=== PATIENT | female | born 1940 | race Caucasian/White ===

== ENCOUNTER → 2016-11-03 | Outpatient (CLI) | payer OTHER ==
[~2016-11-03] MED LIST: HYDR12.55 PO; HYDR25TA5 PO; LEVO50TA6 PO; METO100T7 PO; MULT50TA3 PO; PANT40TA PO; PRT/40 PO; SUCR1TAB PO; TPRSR/100 PO; TYLOTC500 PO
[2016-11-03 12:24] LABS: HEMATOCRIT 41.8 % (37-47); MEAN CELL VOLUME 89.7 fL (80-100); MEAN CORPUSCULAR HEMOGLOBIN 30.9 pg (25-34); MEAN CORPUSCULAR HGB CONC 34.4 g/dl (32-36); PLATELET COUNT 249 K/uL (130-400); RED BLOOD COUNT 4.66 M/uL (4.2-5.4); WHITE BLOOD COUNT 4.47 K/uL (4.8-10.8)
[2016-11-03 12:49] LABS: ALT/SGPT 24 U/L (12-78); BLOOD UREA NITROGEN 18 mg/dl (7-18); BUN/CREATININE RATIO 14.8 (10-20); CALCIUM 9.5 mg/dl (8.5-10.1); CARBON DIOXIDE 28 mmol/L (21-32); CHLORIDE 101 mmol/L (98-107); CHOLESTEROL 272 mg/dl (0-200); GLUCOSE 101 mg/dl (70-99); POTASSIUM 3.3 mmol/L (3.5-5.1); SODIUM 140 mmol/L (136-145)
[2016-11-03 12:54] LABS: ESTIMATED AVERAGE GLUCOSE 114 mg/dl; HA1C FLAG Normal (Normal)
[2016-11-03 12:59] LABS: ALKALINE PHOSPHATASE 83 U/L (45-117); AST/SGOT 22 U/L (15-37); CHOLESTEROL/HDL RATIO 5.3; HDL CHOLESTEROL 51 mg/dl; LDL CHOLESTEROL CALCULATED 174 mg/dl; TRIGLYCERIDES 237 mg/dl (0-150); VERY LOW DENSITY LIPOPROT CALC 47 mg/dl
== END | disposition home or self-care (01) ==
LOC: C.LABBFT 09:32
PROVIDERS: ATTEND Internal Medicine
DX: R73.01 Impaired fasting glucose (principal); I10 Essential (primary) hypertension; E78.5 Hyperlipidemia, unspecified; E03.9 Hypothyroidism, unspecified

== ENCOUNTER 2016-11-20 19:34 | Observation (INO) | payer OTHER ==
[~2016-11-20] VITALS: Ht 165.1 cm; Wt 72.4 kg
[~2016-11-20 19:34] MED LIST changes: -HYDR25TA5 PO; -PRT/40 PO; -TPRSR/100 PO
[2016-11-20] MEDS ORDERED: SODIUM CHLORIDE 0.9% 1000ML 1,000 ML IV ONE (20:03)
[2016-11-20] MEDS ORDERED: DIPHTHERIA/TETANUS/PERTUSSIS 0.5 ML SYR/VIAL IM. ONE (20:15)
[2016-11-20] MEDS ORDERED: XYLOCAINE 1%/SOD BICARB 20 ML VIAL INFIL STA (20:36)
--- NOTE | 2016-11-20 20:37 | DIAGNOSTIC IMAGING REPORT ---
CHEST ONE VIEW PORTABLE CLINICAL HISTORY: Sepsis dyspnea COMPARISON STUDY: No previous studies for comparison. FINDINGS: The bones soft tissues and hemidiaphragms are normal. The cardiomediastinal silhouette is normal. The lungs are clear. The pulmonary vasculature is normal. IMPRESSION: Negative chest. Electronically signed by: Eulalio Styles M.D. 11/20/2016 8:36 PM Dictated Date/Time: 11/20/2016 8:35 PM
--- NOTE | 2016-11-20 20:39 | EMERGENCY ROOM VISIT NOTE ---
ED Visit Note Patient was seen and evaluated by Dr. Pratt. I was asked to repair the wounds. Risks and benefits of performing primary wound closure versus no repair were discussed with the patient who verbalizes understanding. Verbal consent was obtained prior to performing the procedure. There were 3 repairable lacerations. The first is on the superior occipital region measuring 2cm in length, the second on the forehead measuring 2cm in length, and the third on the bridge of the nose measuring 1cm total in the shape of an "L". A total, of 3 cc of 1% buffered lidocaine was used to anesthetize the 3 laceration. Each wound was cleansed and prepped in the typical sterile fashion utilizing normal saline and Betadine. The wound was sterilely draped. Once proper anesthetization was established, the wound was further examined and demonstrated 3 linear, clean lacerations. The wound was copiously irrigated with normal saline and Betadine. The first wound was closed using 5 delvis, the second was closed using 5 simple, 6-0 nylon sutures with the wound edges being well approximated. The third one was closed using one simple interrupted 6-0 nylon suture. Patient tolerated the procedure well. No complications were met. Please refer to further documentation regarding her stay. Total repaired length: 5cm
--- NOTE | 2016-11-20 20:40 | DIAGNOSTIC IMAGING REPORT ---
PELVIS 1 OR 2 VIEW ROUTINE CLINICAL HISTORY: fall trauma COMPARISON: None. DISCUSSION: The bones and joint spaces appear intact. There is no evidence of fracture, dislocation or bony disease. There is no evidence for soft tissue swelling. IMPRESSION: Negative study. Electronically signed by: Eulalio Styles M.D. 11/20/2016 8:38 PM Dictated Date/Time: 11/20/2016 8:36 PM
[2016-11-20 20:56] LABS: BASO % 0.4 %; BASO ABS # 0.03 K/uL (0-0.2); COMPLETE YES; HEMATOCRIT 39.8 % (37-47); IG% 0.3 %; LYMPH ABS # 0.97 K/uL (1.2-3.4); MEAN CELL VOLUME 89.4 fL (80-100); MEAN CORPUSCULAR HEMOGLOBIN 31.7 pg (25-34); MEAN CORPUSCULAR HGB CONC 35.4 g/dl (32-36); MEAN PLATELET VOLUME 9.5 fL (7.4-10.4); NEUT % 66.3 %; PLATELET COUNT 190 K/uL (130-400); RED BLOOD COUNT 4.45 M/uL (4.2-5.4); WHITE BLOOD COUNT 6.91 K/uL (4.8-10.8)
[2016-11-20] MEDS ORDERED: TPRSR/100 PO (21:02)
[2016-11-20] MEDS ORDERED: PRT/40 PO (21:02)
[2016-11-20] MEDS ORDERED: HYDR25TA5 PO (21:02)
--- NOTE | 2016-11-20 21:04 | DIAGNOSTIC IMAGING REPORT ---
HEAD CT NONCONTRAST CT DOSE: HISTORY: Trauma fall TECHNIQUE: Multiaxial CT images of the head were performed without the use of intravenous contrast. Comparison: None. Findings: Opacified sphenoid sinus. The calvarium and skull base are intact. The ventricles and sulci are within normal limits. There is no mass, hematoma, midline shift, or acute infarct. Impression: No acute intracranial abnormality. Electronically signed by: Eulalio Styles M.D. 11/20/2016 9:03 PM Dictated Date/Time: 11/20/2016 9:02 PM
[2016-11-20 21:06] LABS: INR 1.1 (0.9-1.1); PARTIAL THROMBOPLASTIN RATIO 1.2; PROTHROMBIN TIME (PATIENT) 12.1 SECONDS (9.0-12.0)
--- NOTE | 2016-11-20 21:06 | DIAGNOSTIC IMAGING REPORT ---
MAXILLOFACIAL CT CT DOSE: HISTORY: Trauma fall TECHNIQUE: Multiaxial CT images of the maxillofacial region were performed and reformatted in the coronal plane without the use of contrast. COMPARISON: None. FINDINGS: Fracture tip nasal bones. Mild soft tissue edema. Major sinuses are considered clear. There is opacification of the sphenoid sinus. Orbital margins are intact. The globes are symmetric. IMPRESSION: Nondisplaced fracture nasal bones. Soft tissue edema. No additional acute bony abnormality. Electronically signed by: Eulalio Styles M.D. 11/20/2016 9:05 PM Dictated Date/Time: 11/20/2016 9:03 PM
--- NOTE | 2016-11-20 21:08 | DIAGNOSTIC IMAGING REPORT ---
CERVICAL SPINE CT CT DOSE: 1071.76 mGy.cm HISTORY: Trauma fall TECHNIQUE: Multiaxial CT images of the cervical spine were performed and reformatted in the sagittal and coronal plane without the use of contrast. COMPARISON: None. FINDINGS: No fractures. No subluxation. Prevertebral soft tissues and the C1-C2 interval are intact. No pneumothorax. Considerable degenerative change throughout the entire cervical region IMPRESSION: Degenerative change. No acute bony abnormality. Electronically signed by: Eulalio Styles M.D. 11/20/2016 9:07 PM Dictated Date/Time: 11/20/2016 9:05 PM
[2016-11-20 21:15] LABS: ALT/SGPT 22 U/L (12-78); BLOOD UREA NITROGEN 15 mg/dl (7-18); BUN/CREATININE RATIO 11.8 (10-20); C-REACTIVE PROTEIN 2.01 mg/dl (0-0.29); CALCIUM 8.8 mg/dl (8.5-10.1); CARBON DIOXIDE 24 mmol/L (21-32); CHLORIDE 101 mmol/L (98-107); GLUCOSE 124 mg/dl (70-99); MAGNESIUM 1.9 mg/dl (1.8-2.4); POTASSIUM 3.7 mmol/L (3.5-5.1); SODIUM 136 mmol/L (136-145)
[2016-11-20 21:18] LABS: ALB/GLOB RATIO 0.9 (0.9-2); ALKALINE PHOSPHATASE 76 U/L (45-117); AST/SGOT 24 U/L (15-37); CKMB/CK RATIO 1.1 (0-3.0); PHOSPHORUS 2.8 mg/dl (2.5-4.9)
[2016-11-20 22:35] LABS: URINE APPEARANCE CLEAR (CLEAR); URINE BILIRUBIN NEG (NEG); URINE COLOR YELLOW; URINE EPITHELIAL CELL AUTO >30 /lpf (0-5); URINE NITRITE NEG (NEG); URINE PH 6.5 (4.5-7.5); URINE SPECIFIC GRAVITY 1.021 (1.000-1.030); UROBILINOGEN NEG (NEG); ZZUR CULT IF INDIC CLEAN CATCH NO
[2016-11-20 22:36] LABS: MANUAL MICROSCOPIC REQUIRED? NO; REVIEW REQ? NO
--- NOTE | 2016-11-20 23:30 | EMERGENCY ROOM VISIT NOTE ---
History Report prepared by Rakel: Tsering Parker Under the Supervision of: Dr. Elmer Pratt D.O. First contact with patient: 19:57 Chief Complaint: FALL Stated Complaint: FELL, CUTS AND BURISES ALL OVER History of Present Illness The patient is a 76 year old female who presents to the Emergency Room with complaints of a sudden fall that occurred 1.5 hours ago, around 1830. The patient fell and hit her head. She is unsure of if she experienced LOC. She states that she remembers falling and that she couldn't get up afterward. The patient was able to stand and ambulate with help after falling. The patient is experiencing right arm pain and bilateral upper extremity numbness. She denies head pain and neck pain. She states that she has chronic neck pain and it does not feel any worse than usual. The patient states that she has been experiencing a productive cough with green sputum along with intermittent rhinorrhea and a sore throat. She adds that her was sick with similar symptoms last week. The patient denies chest pain, shortness of breath, abdominal pain, and urinary symptoms. She states that her tetanus shot is not up to date. The patient is not on any blood thinners. Source of History: patient Onset: 1.5 hours ago, around 1829 Position: other (global) Quality: other (fall ) Associated Symptoms: + cough (productive with green sputum), + sorethroat, No neck pain Note: intermittent rhinorrhea, right arm pain, bilateral upper extremity numbness, no head pain Review of Systems See HPI for pertinent positives & negatives. A total of 10 systems reviewed and were otherwise negative. Past Medical & Surgical Medical Problems: (1) Anxiety (2) Arthritis (3) Benign hypertension (4) Bilateral tubal ligation (5) ESOPHAGEAL STRICTURE (6) Hysterectomy (7) Paresthesia of both hands (8) Phlebitis Family History Cancer Diabetes mellitus Gallbladder disease Heart disease Hypertension Social History Smoking Status: Never Smoker Alcohol Use: none Drug Use: none Marital Status: Housing Status: lives with family Occupation Status: retired Current/Historical Medications Scheduled Hydrochlorothiazide (Hydrochlorothiazide), 12.5 MG PO DAILY Levothyroxine Sodium (Levothyroxine Sodium), 50 MCG PO DAILY Metoprolol Succinate (Metoprolol Succinate ER), 100 MG PO DAILY Multiple Vitamins W/ Minerals (One Daily 50 Plus), 1 TAB PO DAILY Pantoprazole (Pantoprazole Sodium), 40 MG PO BID Allergies Coded Allergies: No Known Allergies (Verified , NKA, 11/20/16) Physical Exam Vital Signs Date Time Temp Pulse Resp B/P Pulse Ox O2 Delivery O2 Flow Rate FiO2 11/20/16 23:31 36.8 20 147/81 96 Room Air 11/20/16 22:17 79 20 158/90 96 Room Air 11/20/16 20:43 95 Room Air 11/20/16 20:07 83 11/20/16 19:35 38.0 119 20 134/69 100 Room Air Physical Exam GENERAL: Patient is awake, alert, and in no acute distress. Patient is somewhat anxious but comfortable. Patient does not appear to be in significant pain. HEAD: Horizontal laceration on forehead and parietal scalp. No active bleeding noted. EYES: The conjunctivae are clear. The pupils are round and reactive. EARS, NOSE, MOUTH AND THROAT: Ecchymosis and swelling over bridge of nose. Clotted blood noted in both nares. Small laceration over the bride of the nose. Mucous membranes are dry tongue is midline NECK: The neck is nontender and supple. RESPIRATORY: Normal respiratory effort is noted there are diminished breath sounds throughout with scattered rhonchi. No significant tachypnea or conversational dyspnea. CARDIOVASCULAR: Regular rate and rhythm noted there no murmurs rubs or gallops normal S1 normal S2 GASTROINTESTINAL: The abdomen is soft. Bowel sounds are present in all quadrants. Abdomen is nontender BACK: No midline tenderness or or step-off noted range of motion in flexion extension as well as rotation no signs of muscle spasm noted MUSCULOSKELETAL/EXTREMITIES: There is no evidence of gross deformity full range of motion is noted in the hips and shoulders SKIN: Trace pedal edema bilaterally. There is no obvious evidence of any rash. There are no petechiae, pallor or cyanosis noted. NEUROLOGIC: Patient is awake alert and oriented x3 patellar reflexes are 1+ bilaterally no drift. Patient complains of subjective numbness of both upper extremities from elbows to hands. GCS: 15. Medical Decision & Procedures ER Provider Diagnostic Interpretation: Radiology results as stated below per my review and radiologist interpretation: CHEST ONE VIEW PORTABLE IMPRESSION: Negative chest. Electronically signed by: Eulalio Styles M.D. 11/20/2016 8:36 PM Dictated Date/Time: 11/20/2016 8:35 PM PELVIS 1 OR 2 VIEW ROUTINE IMPRESSION: Negative study. Electronically signed by: Eulalio Styles M.D. 11/20/2016 8:38 PM Dictated Date/Time: 11/20/2016 8:[address] NONCONTRAST Impression: No acute intracranial abnormality. Electronically signed by: Eulalio Styles M.D. 11/20/2016 9:03 PM Dictated Date/Time: 11/20/2016 9:[address] IMPRESSION: Nondisplaced fracture nasal bones. Soft tissue edema. No additional acute bony abnormality. Electronically signed by: Eulalio Styles M.D. 11/20/2016 9:05 PM Dictated Date/Time: 11/20/2016 9:[address] IMPRESSION: Degenerative change. No acute bony abnormality. Electronically signed by: Eulalio Styles M.D. 11/20/2016 9:07 PM Dictated Date/Time: 11/20/2016 9:05 PM Laboratory Results 11/20/16 20:35 Red Blood Count 4.45, Mean Corpuscular Volume 89.4, Mean Corpuscular Hemoglobin 31.7, Mean Corpuscular Hemoglobin Concent 35.4, Mean Platelet Volume 9.5, Neutrophils (%) (Auto) 66.3, Lymphocytes (%) (Auto) 14.0, Monocytes (%) (Auto) 19.0, Eosinophils (%) (Auto) 0.0, Basophils (%) (Auto) 0.4, Neutrophils # (Auto ) 4.58, Lymphocytes # (Auto) 0.97, Monocytes # (Auto) 1.31, Eosinophils # (Auto ) 0.00, Basophils # (Auto) 0.03 Test 11/20/16 20:35 11/20/16 20:40 11/20/16 20:45 11/20/16 22:10 White Blood Count 6.91 K/uL (4.8-10.8) Red Blood Count 4.45 M/uL (4.2-5.4) Hemoglobin 14.1 g/dL (12.0-16.0) Hematocrit 39.8 % (37-47) Mean Corpuscular Volume 89.4 fL (80-100) Mean Corpuscular Hemoglobin 31.7 pg (25-34) Mean Corpuscular Hemoglobin Concent 35.4 g/dl (32-36) Platelet Count 190 K/uL (130-400) Mean Platelet Volume 9.5 fL (7.4-10.4) Neutrophils (%) (Auto) 66.3 % Lymphocytes (%) (Auto) 14.0 % Monocytes (%) (Auto) 19.0 % Eosinophils (%) (Auto) 0.0 % Basophils (%) (Auto) 0.4 % Neutrophils # (Auto) 4.58 K/uL (1.4-6.5) Lymphocytes # (Auto) 0.97 K/uL (1.2-3.4) Monocytes # (Auto) 1.31 K/uL (0.11-0.59) Eosinophils # (Auto) 0.00 K/uL (0-0.5) Basophils # (Auto) 0.03 K/uL (0-0.2) RDW Standard Deviation 46.7 fL (36.4-46.3) RDW Coefficient of Variation 14.2 % (11.5-14.5) Immature Granulocyte % (Auto) 0.3 % Immature Granulocyte # (Auto) 0.02 K/uL (0.00-0.02) Erythrocyte Sedimentation Rate 29 mm/hr (0-21) Prothrombin Time 12.1 SECONDS (9.0-12.0) Prothromb Time International Ratio 1.1 (0.9-1.1) Activated Partial Thromboplast Time 30.2 SECONDS (21.0-31.0) Partial Thromboplastin Ratio 1.2 Phosphorus Level 2.8 mg/dl (2.5-4.9) Total Bilirubin 0.7 mg/dl (0.2-1) Aspartate Amino Transf (AST/SGOT) 24 U/L (15-37) Alanine Aminotransferase (ALT/SGPT) 22 U/L (12-78) Alkaline Phosphatase 76 U/L (45-117) Total Creatine Kinase 236 U/L (26-192) Creatine Kinase MB 2.5 ng/ml (0.5-3.6) Creatine Kinase MB Ratio 1.1 (0-3.0) Troponin I < 0.015 ng/ml (0-0.045) C-Reactive Protein 2.01 mg/dl (0-0.29) Pro-B-Type Natriuretic Peptide 1264 pg/ml (0-900) Total Protein 8.0 gm/dl (6.4-8.2) Albumin 3.8 gm/dl (3.4-5.0) Globulin 4.2 gm/dl (2.5-4.0) Albumin/Globulin Ratio 0.9 (0.9-2) Lipase 119 U/L (73-393) Influenza Type A (RT-PCR) Neg for Influ A (NEG) Influenza Type A Antigen Neg for Influ A (NEG) Influenza Type B Antigen Neg for Influ B (NEG) Influenza Type B (RT-PCR) Neg for Influ B (NEG) Bedside Lactic Acid Venous 1.68 mmol/L (0.90-1.70) Urine Color YELLOW Urine Appearance CLEAR (CLEAR) Urine pH 6.5 (4.5-7.5) Urine Specific [place] 1.021 (1.000-1.030) Urine Protein 1+ (NEG) Urine Glucose (UA) NEG (NEG) Urine Ketones 1+ (NEG) Urine Occult Blood 1+ (NEG) Urine Nitrite NEG (NEG) Urine Bilirubin NEG (NEG) Urine Urobilinogen NEG (NEG) Urine Leukocyte Esterase NEG (NEG) Urine WBC (Auto) 1-5 /hpf (0-5) Urine RBC (Auto) 0-4 /hpf (0-4) Urine Hyaline Casts (Auto) 1-5 /lpf (0-5) Urine Epithelial Cells (Auto) >30 /lpf (0-5) Urine Bacteria (Auto) NEG (NEG) Laboratory results per my review. Medications Administered Medications (Trade) Dose Ordered Sig/Jean Route Start Time Stop Time Status Last Admin Dose Admin Sodium Chloride (Nss 1000ml) 1,000 ml @ 999 mls/hr Q1H1M ONCE IV 11/20/16 20:03 11/20/16 21:03 DC 11/20/16 20:03 999 MLS/HR Diphtheria/ Pertussis/Tetanus Vacc (Adacel Inj) 0.5 ml ONCE ONCE IM. 11/20/16 20:15 11/20/16 20:16 DC 11/20/16 21:19 0.5 ML Acetaminophen (Tylenol Tab) 650 mg Q4H PRN PO 11/20/16 23:45 12/20/16 23:44 11/21/16 14:36 650 MG ECG Indication: back/shoulder pain Rate (beats per minute): 86 Rhythm: sinus rhythm Findings: 1st degree AV block, no ectopy, other (no acute ST segment abnormalities) Comparison ECG Date: no prior available ED Course 1999: The patient was evaluated in room C1. A complete history and physical examination were performed. 2002: Ordered NSS 1,000 ml @ 999 mls/hr IV 2014: Ordered Adacel Inj 0.5 ml IM 2019: I discussed the patient's case with Eldon Louis PA-C. He is going to repair the patient's lacerations. 2155: Eldon Louis PA-C finished the laceration repair at this time. Refer to his note for further details about the procedure. 2235: I reassessed and updated the patient. 0: Upon reevaluation, the patient is resting comfortably. I discussed results and treatment plan with her. She verbalizes agreement and understanding. The patient will be evaluated for further management and care. 2326: I discussed the patient's case with Dr. Ramone SHAH. The patient will be evaluated for further management. Medical Decision Prior records/ancillary studies reviewed. Triage Nursing notes reviewed. The patient's history was concerning for traumatic injury Differential diagnosis: Etiologies such as fracture, dislocation, intra-abdominal, pneumothorax, intrathoracic , intracranial, neurologic, as well as other traumatic pathologies were entertained. The patient is a 76-year-old female who presented to the emergency department after a fall. It sounds that the patient may have had a syncopal episode but when she was found she had significant facial and head injuries. The patient had swelling over her nasal bridge. She also had a laceration to the scalp. The patient was reevaluated multiple times. She was treated with IV fluids. I discussed the patient's laboratory and radiographic studies with her. I also discussed his case with the on-call [facility] hospitalist group. They have agreed to evaluate the patient in the emergency department for further management and disposition. I discussed the patient's condition with her family members as well. The patient had continued symptoms of upper extremity tingling. She had no bony abnormalities noted on CAT scan however she may require an MRI to further evaluate for central cord syndrome or ligamentous injury. I discussed this with the accepting admitting doctor. Consults Time Called: [id number] Consulting Physician: Dr. Ramone SHAH Returned Call: [phone] I discussed the patient's case with Dr. Ramone SHAH. The patient will be evaluated for further management. Impression Primary Impression: Syncope Additional Impressions: Fever Facial contusion Nasal bone fracture Numbness of upper extremity Scalp laceration Congestive heart failure Scribe Attestation The scribe's documentation has been prepared under my direction and personally reviewed by me in its entirety. I confirm that the note above accurately reflects all work, treatment, procedures, and medical decision making performed by me. Departure Information Dispostion Being Evaluated By Hospitalist Referrals Eran Tavarez M.D. (PCP) Patient Instructions [facility] Problem Qualifiers Primary Impression: Syncope Syncope type: unspecified Qualified Codes: R55 - Syncope and collapse Additional Impressions: Fever Fever type: unspecified Qualified Codes: R50.9 - Fever, unspecified Facial contusion Encounter type: initial encounter Qualified Codes: S00.83XA - Contusion of other part of head, initial encounter Nasal bone fracture Encounter type: initial encounter Fracture type: closed Qualified Codes: S02.2XXA - Fracture of nasal bones, initial encounter for closed fracture Scalp laceration Encounter type: initial encounter Qualified Codes: S01.01XA - Laceration without foreign body of scalp, initial encounter Congestive heart failure Congestive heart failure type: unspecified congestive heart failure type Congestive heart failure chronicity: acute on chronic Qualified Codes: I50.9 - Heart failure, unspecified
[2016-11-20] MEDS ORDERED: MAGNESIUM HYDROXIDE SUSP 30 ML UDC PO PRN (23:45)
[2016-11-20] MEDS ORDERED: ONDANSETRON INJ 2 MG/ML 2 ML VIAL IV PRN (23:45)
[2016-11-20] MEDS ORDERED: POLYETHYLENE (MIRALAX) 17 GM PACK PO PRN (23:45)
[2016-11-20] MEDS ORDERED: ALUMINUM/MAGNESIUM/SIMETH (MAALOX MAX) 30 ML UDC PO PRN (23:45)
[2016-11-21] VITALS (9 sets, daily range): BP systolic 105–167; BP diastolic 62–84; PULSE 60–84; TEMP 36.4–37.1; O2SAT 93–97; Ht 165.1 cm; Wt 72.4 kg
[2016-11-21 00:23] LABS: INFLUENZA A PCR Neg for Influ A (NEG); INFLUENZA B PCR Neg for Influ B (NEG)
--- NOTE | 2016-11-21 00:50 | History and Physical ---
History & Physical Date & Time of Service: Nov 21, 2016 at 00:05 Chief Complaint: Fell, Cuts And Burises All Over Primary Care Physician: Eran Tavarez M.D. History of Present Illness Source: patient 74 y/o F w/Hx HTN, hypothyroid, esophageal strictures. Pt has had a flu-like illness for 1-2 days involving a productive cough, fever and weakness. She was in her kitchen when she became light headed and lost consciousness, falling at the base of her stairs and suffering head and face trauma in the process. She does not describe any acute neck pain however she states that she has a sensation of numbness and tingling in both hands which has been present since her syncopal episode. A skeletal survey was performed in the ER revealing a nasal fracture without additional acute findings. She is AAO x 3 on arrival to the ER. A low-grade fever was confirmed and initial labs are notable for mild ELIU. She denies CP, palpitations or SOB prior to losing consciousness. She required multiple stitches and a few delvis due to abrasions of her face/head. Her is currently ill with what may be a viral URI. Past Medical/Surgical History Medical Problems: (1) Anxiety Status: Chronic (2) Arthritis Status: Chronic (3) Benign hypertension Status: Chronic (4) Bilateral tubal ligation Status: Resolved (5) ESOPHAGEAL STRICTURE Status: Chronic (6) Hysterectomy Status: Resolved (7) Phlebitis Status: Chronic Family History Cancer Diabetes mellitus Gallbladder disease Heart disease Hypertension Social History Smoking Status: Never Smoker Drug Use: none Marital Status: Occupational Status: retired Multi-Drug Resistant Organisms History of MDRO: No Allergies Coded Allergies: No Known Allergies (Verified , NKA, 11/20/16) Home Medications Scheduled Hydrochlorothiazide (Hydrochlorothiazide), 12.5 MG PO DAILY Levothyroxine Sodium (Levothyroxine Sodium), 50 MCG PO DAILY Metoprolol Succinate (Metoprolol Succinate ER), 100 MG PO DAILY Multiple Vitamins W/ Minerals (One Daily 50 Plus), 1 TAB PO DAILY Pantoprazole (Pantoprazole Sodium), 40 MG PO BID Review of Systems Constitutional: + chills, + fever, No sweats Eyes: No eye pain, No worsening of vision ENT: + problem reported (nasal bridge pain following trauma), No hearing loss, No nasal symptoms, No unusual epistaxis Respiratory: + cough, + sputum, No dyspnea at rest, No dyspnea on exertion, No shortness of breath, No wheezing Cardiovascular: No PND, No chest pain, No orthopnea Abdomen: No nausea, No pain, No vomiting Musculoskeletal: + joint pain (chronic) Genitourinary - Female: No dysuria, No urinary frequency, No urinary urgency Neurologic: + numbness/tingling, + problem reported ([place]), No memory loss, No paralysis Psychiatric: No depression symptoms Endocrine: + fatigue Hematologic / Lymphatic: No abnormal bleeding/bruising Integumentary: No rash Physical Exam Vital Signs Date Time Temp Pulse Resp B/P Pulse Ox O2 Delivery O2 Flow Rate FiO2 11/20/16 23:31 36.8 20 147/81 96 Room Air 11/20/16 22:17 79 20 158/90 96 Room Air 11/20/16 20:43 95 Room Air 11/20/16 20:07 83 11/20/16 19:35 38.0 119 20 134/69 100 Room Air General Appearance: + pertinent finding Head: + evidence of trama (multiple abrasions/small lacerations - bruising n nasal bridge and under eyes) Eyes: normal inspection, PERRL, EOMI ENT: normal ENT inspection, hearing grossly normal, TMs normal, pharynx normal Neck: supple, no adenopathy, thyroid normal, no JVD Respiratory/Chest: chest non-tender, lungs clear, normal breath sounds, no respiratory distress, no accessory muscle use Cardiovascular: regular rate, rhythm, no edema, no gallop Abdomen/GI: normal bowel sounds, non tender, soft Back: normal inspection, no CVA tenderness, no muscle spasm, normal range of motion Extremities/Musculoskelatal: normal inspection, no calf tenderness, normal capillary refill, no pedal edema, normal range of motion Neurologic/Psych: material combiner II-XII nml as tested, no motor/sensory deficits, alert, normal mood/affect, normal reflexes, oriented x 3, + pertinent finding (It is noted that her numbness is largely subjective as light touch is intact bilaterally) Skin: + pertinent finding (abrasions as above as noted) Diagnostics Laboratory Results Results Past 24 Hours Test 11/20/16 20:35 11/20/16 20:40 11/20/16 20:45 11/20/16 22:10 Range/Units White Blood Count 6.91 4.8-10.8 K/uL Red Blood Count 4.45 4.2-5.4 M/uL Hemoglobin 14.1 12.0-16.0 g/dL Hematocrit 39.8 37-47 % Mean Corpuscular Volume 89.4 80-100 fL Mean Corpuscular Hemoglobin 31.7 25-34 pg Mean Corpuscular Hemoglobin Concent 35.4 32-36 g/dl Platelet Count 190 130-400 K/uL Mean Platelet Volume 9.5 7.4-10.4 fL Neutrophils (%) (Auto) 66.3 % Lymphocytes (%) (Auto) 14.0 % Monocytes (%) (Auto) 19.0 % Eosinophils (%) (Auto) 0.0 % Basophils (%) (Auto) 0.4 % Neutrophils # (Auto) 4.58 1.4-6.5 K/uL Lymphocytes # (Auto) 0.97 1.2-3.4 K/uL Monocytes # (Auto) 1.31 0.11-0.59 K/uL Eosinophils # (Auto) 0.00 0-0.5 K/uL Basophils # (Auto) 0.03 0-0.2 K/uL RDW Standard Deviation 46.7 36.4-46.3 fL RDW Coefficient of Variation 14.2 11.5-14.5 % Immature Granulocyte % (Auto) 0.3 % Immature Granulocyte # (Auto) 0.02 0.00-0.02 K/uL Erythrocyte Sedimentation Rate 29 0-21 mm/hr Prothrombin Time 12.1 9.0-12.0 SECONDS Prothromb Time International Ratio 1.1 0.9-1.1 Activated Partial Thromboplast Time 30.2 21.0-31.0 SECONDS Partial Thromboplastin Ratio 1.2 Sodium Level 136 136-145 mmol/L Potassium Level 3.7 3.5-5.1 mmol/L Chloride Level 101 98-107 mmol/L Carbon Dioxide Level 24 21-32 mmol/L Anion Gap 11.0 3-11 mmol/L Blood Urea Nitrogen 15 7-18 mg/dl Creatinine 1.30 0.60-1.20 mg/dl Est Creatinine Clear Calc Drug Dose 37.4 ml/min Estimated GFR () 46.5 Estimated GFR (Non- 40.1 BUN/Creatinine Ratio 11.8 10-20 Random Glucose 124 70-99 mg/dl Calcium Level 8.8 8.5-10.1 mg/dl Phosphorus Level 2.8 2.5-4.9 mg/dl Magnesium Level 1.9 1.8-2.4 mg/dl Total Bilirubin 0.7 0.2-1 mg/dl Aspartate Amino Transf (AST/SGOT) 24 15-37 U/L Alanine Aminotransferase (ALT/SGPT) 22 12-78 U/L Alkaline Phosphatase 76 45-117 U/L Total Creatine Kinase 236 26-192 U/L Creatine Kinase MB 2.5 0.5-3.6 ng/ml Creatine Kinase MB Ratio 1.1 0-3.0 Troponin I < 0.015 0-0.045 ng/ml C-Reactive Protein 2.01 0-0.29 mg/dl Pro-B-Type Natriuretic Peptide 1264 0-900 pg/ml Total Protein 8.0 6.4-8.2 gm/dl Albumin 3.8 3.4-5.0 gm/dl Globulin 4.2 2.5-4.0 gm/dl Albumin/Globulin Ratio 0.9 0.9-2 Lipase 119 73-393 U/L Influenza Type A Antigen Neg for Influ A NEG Influenza Type B Antigen Neg for Influ B NEG Bedside Lactic Acid Venous 1.68 0.90-1.70 mmol/L Urine Color YELLOW Urine Appearance CLEAR CLEAR Urine pH 6.5 4.5-7.5 Urine Specific [place] 1.021 1.000-1.030 Urine Protein 1+ NEG Urine Glucose (UA) NEG NEG Urine Ketones 1+ NEG Urine Occult Blood 1+ NEG Urine Nitrite NEG NEG Urine Bilirubin NEG NEG Urine Urobilinogen NEG NEG Urine Leukocyte Esterase NEG NEG Urine WBC (Auto) 1-5 0-5 /hpf Urine RBC (Auto) 0-4 0-4 /hpf Urine Hyaline Casts (Auto) 1-5 0-5 /lpf Urine Epithelial Cells (Auto) >30 0-5 /lpf Urine Bacteria (Auto) NEG NEG Microbiology Results 11/20/16 Blood Culture, Received Pending 11/20/16 Blood Culture, Received Pending Diagnostic Radiology Nondisplaced fracture nasal bones. Soft tissue edema. No additional acute bony abnormality. Normal EKG Impression Assessment and Plan 74 y/o F w/Hx HTN, hypothyroid, esophageal strictures. Pt has had a flu-like illness for 1-2 days involving a productive cough, fever and weakness. She was in her kitchen when she became light headed and lost consciousness falling at the base of her stairs and suffering head and face trauma in the process. She does not describe any acute neck pain however she states that she has a sensation of numbness and tingling in both hands which has been present since her syncopal episode. A skeletal survey was performed in the ER revealing a nasal fracture without additional acute findings. She is AAO x 3 on arrival to the ER. A low-grade fever was confirmed and initial labs are notable for mild ELIU. She denies CP, palpitations or SOB prior to losing consciousness. She required multiple stitches and a few delvis due to abrasions of her face/head. 1) Syncope - this is most likely related to her viral illness and volume depletion - we have no reason to suspect an arrhythmia based on her history and presentation and would reserve a complete syncope workup if she has recurrence of lightheadedness or if abnormalities are noted on monitor. She will be aggressively hydrated overnight and we will obtain orthostatic BPs with vitals. Her Metoprolol and HCTZ have been held pending AM labs and orthostatics. She states that she skipped both on the day of admission. 2) Face / head trauma and nasal fracture - this is unlikely to require intervention aside from resultant cosmetic issues which may be of little concern to the pt. We will provide her with analgesics as needed. 3) Cough, fever - Influ PCR is pending - initial rapid test is negative - no evidence of pneumonia on XR - will treat supportively - consider antibiotics if symptoms worsen and PCR is negative. Consider CT chest if respiratory status worsens. 4) HTN - will restart Metoprolol AM if orthostatic BP is WNL. 5) ELIU - mild, likely pre-renal - IVF, recheck BMP AM - hold HCTZ 6) Hypothyroidism - continue Synthroid. Full code - SCDs only as prophylaxis due to head trauma Total time for this admit including review of available records, labs, imaging, EKG - discussion with ER attending and PT/family - 35 min Level of Care Telemetry Resuscitation Status FULL RESUSCITATION VTE Prophylaxis VTE Risk Assessment Done? Y/N: Yes Risk Level: Low Given or contraindicated: SCD's
[2016-11-21] MEDS ORDERED: IV FLUIDS COMPLETED PRN (03:00)
[2016-11-21] MEDS: NSS + 20MEQ KCL 1000ML 1,000 ML IV SCH ×2 (03:12→11:49)
[2016-11-21] MEDS: ACETAMINOPHEN 325 MG TAB PO PRN ×3 (04:54→20:51)
[2016-11-21] MEDS: LEVOTHYROXINE 50 MCG TAB PO SCH (04:54)
[2016-11-21 08:03] LABS: BUN/CREATININE RATIO 14.7 (10-20); CALCIUM 8.4 mg/dl (8.5-10.1); CREATININE 0.99 mg/dl (0.60-1.20); MAGNESIUM 2.1 mg/dl (1.8-2.4); POTASSIUM 3.5 mmol/L (3.5-5.1)
[2016-11-21] MEDS: PANTOprazole SOD 40 MG TAB PO SCH ×2 (08:32→20:48)
[2016-11-21] MEDS: METOPROLOL SUCC 50MG EXT REL TAB PO SCH (08:33)
[2016-11-22 04:00] VITALS: BP 157/73; PULSE 62; TEMP 36.2; O2SAT 95
[2016-11-22] MEDS: ACETAMINOPHEN 325 MG TAB PO PRN ×2 (04:04→10:22)
[2016-11-22 04:05] VITALS: O2SAT 95
[2016-11-22] MEDS: LEVOTHYROXINE 50 MCG TAB PO SCH (06:30)
[2016-11-22 08:13] VITALS: BP 164/79; PULSE 69; TEMP 36.9; O2SAT 96
[2016-11-22 08:13] LABS: HEMATOCRIT 38.4 % (37-47); MEAN CELL VOLUME 91.6 fL (80-100); MEAN CORPUSCULAR HEMOGLOBIN 31.3 pg (25-34); MEAN CORPUSCULAR HGB CONC 34.1 g/dl (32-36); MEAN PLATELET VOLUME 9.8 fL (7.4-10.4); PLATELET COUNT 174 K/uL (130-400); RED BLOOD COUNT 4.19 M/uL (4.2-5.4); WHITE BLOOD COUNT 3.79 K/uL (4.8-10.8)
[2016-11-22] MEDS: PANTOprazole SOD 40 MG TAB PO SCH (08:34)
[2016-11-22] MEDS: METOPROLOL SUCC 50MG EXT REL TAB PO SCH (08:34)
[2016-11-22 08:46] LABS: BUN/CREATININE RATIO 10.2 (10-20); CALCIUM 8.9 mg/dl (8.5-10.1); CREATININE 0.97 mg/dl (0.60-1.20); POTASSIUM 3.9 mmol/L (3.5-5.1)
--- NOTE | 2016-11-22 11:18 | Discharge Instructions ---
Discharge Instructions Date of Service Nov 22, 2016. Admission Reason for Admission: Paresthesia Of Both Hands, Syncope Discharge Discharge Diagnosis / Problem: Fall, Syncope, Paresthesias of both hands Discharge Goals Goal(s): Decrease discomfort, Improve function, Diagnostic testing, Therapeutic intervention Activity Recommendations Activity Limitations: resume your previous activity . Instructions / Follow-Up Instructions / Follow-Up You were admitted following a syncopal episode (fainting) and a fall. You were found to have fractures of the nasal bones that were non-displaced, and these will not require any further intervention and should heal on their own. Upon arrival to the hospital you were found to be dehydrated, which may have contributed to your fainting and subsequent fall. We obtained orthostatic blood pressures in which your blood pressure was checked in various positions. This was borderline positive, showing that your blood pressure does drop when you change from a lying position to standing position. This can also cause syncope and falls. You were treated with IV fluids and encouraged to drink plenty of fluids to keep yourself hydrated. The tingling in your hands appears to be secondary to the fall and should go away on its own. The pain was relieved with Tylenol, indicating a possible musculoskeletal and/or inflammatory origin. You were monitored on telemetry to check for any cardiac arrhythmias that could possibly cause syncope, but you remained in a regular sinus rhythm during your stay, and the syncope is more likely related to dehydration and orthostatic hypotension as above. Recommendations: *Your sutures and delvis were placed on 11/20. Please aim to return to the ER on 11/26 for removal. *You may use hydrogen peroxide to soften the scab on the bridge of your nose and cover the wound with Neosporin or another antibacterial ointment. *Due to the decrease in blood pressure when you stand up, please be careful when changing positions and make sure to do so slowly, especially if you experience any dizziness or lightheadedness. *Be sure to drink plenty of fluids to keep yourself hydrated, as dehydration in itself can also cause syncope/fainting and falls. Medications: *You may continue to take Tylenol as needed for your hand pain. Do not exceed more than 4 grams of Tylenol in 24 hours. *Your hydrochlorothiazide medication had been held while in the hospital because you had been placed on IV fluids. Please resume this medication on discharge. *You may resume your home medications as prescribed. Follow up: *Please return to the emergency room on 11/26 to have your sutures and delvis removed. *Please follow up with your primary care provider within 1 week regarding your hospital stay. Your blood pressure was somewhat elevated during your stay, likely secondary to pain as well as holding the hydrochlorothiazide. Please follow up with Dr. Tavarez to ensure your blood pressure is controlled. Please also follow up regarding your nasal fractures to ensure those are healing properly. Current Hospital Diet Patient's current hospital diet: AHA Diet (Heart Healthy) Discharge Diet Recommended Diet: AHA Diet (Heart Healthy) Pending Studies Studies pending at discharge: no Laboratory Results Hemoglobin A1c Test 11/03/16 09:36 Range/Units Estimated Average Glucose 114 mg/dl Hemoglobin A1c 5.6 4.5-5.6 % Lipid Panel Test 11/03/16 09:36 Range/Units Triglycerides Level 237 H 0-150 mg/dl Cholesterol Level 272 H 0-200 mg/dl HDL Cholesterol 51 mg/dl Cholesterol/HDL Ratio 5.3 LDL Cholesterol, Calculated 174 mg/dl Medical Emergencies . Who to Call and When: Medical Emergencies: If at any time you feel your situation is an emergency, please call 911 immediately. . Non-Emergent Contact Non-Emergency issues call your: Primary Care Provider Call Non-Emergent contact if: you have a fever, your pain is not controlled, your pain is worsening, your pain is concerning you, wound has increased drainage, wound has increased redness, wound has increased pain, you have any medication questions . Past History Medical & Surgical History: (1) Syncope (2) Paresthesia of both hands (3) Nasal bone fracture (4) Facial contusion (5) Scalp laceration . "Provider Documentation" section prepared by Kym Hernandez. VTE Core Measure Inpt VTE Proph given/why not?: SCD's
[2016-11-22 11:50] VITALS: BP 156/83; PULSE 60; TEMP 36.5; O2SAT 97
[2016-11-22 12:59] VITALS: BP 156/83; PULSE 60; TEMP 36.5; O2SAT 97
--- NOTE | 2016-11-22 15:22 | Discharge Summary ---
Discharge Summary Date of Service Nov 22, 2016. (Kym Hernandez .SHWETHA) Discharge Summary Admission Date: Nov 20, 2016 at 23:56 Discharge Date: Nov 22, 2016 Discharge Disposition: Home Principal Diagnosis: Fall, Syncope, Paresthesias (Kym Hernandez PA-C) Medication Reconciliation Continued Medications: Hydrochlorothiazide (Hydrochlorothiazide) 25 Mg Tab 12.5 MG PO DAILY, #30 Levothyroxine Sodium (Levothyroxine Sodium) 50 Mcg Tab 50 MCG PO DAILY Metoprolol Succinate (Metoprolol Succinate ER) 100 Mg Tabcr 100 MG PO DAILY, #30 Multiple Vitamins W/ Minerals (One Daily 50 Plus) 1 Tab Tab 1 TAB PO DAILY Pantoprazole (Pantoprazole Sodium) 40 Mg Tab 40 MG PO BID, #60 Referrals At Discharge Follow up Referrals: Family Practice Referral - Within 1 Week with Eran Tavarez M.D. Discharge Exam Patient reports feeling well. She still complains of 5/10 dull pain in her hands bilaterally as well as tingling. She reports some mild aching pain at the top of her head at the area of her delvis. She also has a productive cough with green mucus that she had prior to arrival. She otherwise reports feeling well. The patient denies fevers, chills, sweats, chest pain, palpitations, claudication, wheezing, shortness of breath, nausea, vomiting, abdominal pain, dysuria, hematuria, urinary retention, paralysis, weakness. Review of Systems: Constitutional: No chills, No fatigue, No fever, No sweats, No weakness Eyes: No diplopia, No discharge, No worsening of vision ENT: No hearing loss, No sore throat, No trouble swallowing Respiratory: + cough, + sputum (green), No shortness of breath, No wheezing Cardiovascular: No chest pain, No claudication, No palpitations Abdomen: No nausea, No pain, No vomiting Musculoskeletal: + joint pain (hands bilaterally), No calf pain, No muscle pain Genitourinary - Female: No dysuria, No hematuria, No urinary retention Neurologic: + numbness/tingling (hands bilaterally), No paralysis, No weakness Integumentary: No color change, No itch, No rash Physical Exam: General Appearance: WD/WN, no apparent distress Eyes: normal inspection, PERRL, EOMI ENT: normal ENT inspection, hearing grossly normal, pharynx normal Neck: supple, no JVD, trachea midline Respiratory/Chest: normal breath sounds, no respiratory distress, + crackles (R>L bases) Cardiovascular: regular rate, rhythm, no gallop, no murmur Abdomen / GI: normal bowel sounds, non tender, soft Extremities: normal inspection, no calf tenderness, normal capillary refill , no pedal edema Neurologic/Psychiatric: alert, normal mood/affect, oriented x 3 Skin: normal color, warm/dry, no rash, + pertinent finding (ecchymoses around eyes/eyelids and underneath eyes bilaterally, bridge of nose. delvis on scalp on superior aspect of head. sutures on forehead. 1 suture and scab on bridge of nose) (Kym Hernandez ., SHWETHA) Hospital Course 74 y/o female with a history of HTN, hypothyroidism, esophageal strictures who presented to the ED following a fall. The patient had been walking from her kitchen to her hallway when she suddenly felt lightheaded and fell. She hit her face/head on the door frame. The patient also complains of numbness/ tingling as well as pain in both hands since her syncopal episode. Imaging in the ER showed nasal bone fractures but did not show any other fractures or acute findings. Pt was febrile on arrival and initial labs are notable for mild ELIU. She denies CP, palpitations or SOB prior to losing consciousness. She required multiple stitches and a few delvis due to abrasions of her face/ head. Syncope--likely secondary to dehydration. Borderline orthostatic hypotension -Admitted to telemetry to check for arrhythmias. Pt remained in NSR during stay -Orthostatic BPs, but had less than 20 mmHg drop in SBP, positive for 10 mmHg drop in DBP -Pt hydrated with NSS + 20 mEq KCl at 125 cc/hr x 2 bags. Pt has adequate PO intake, stopped IVF after 2 bags -Metoprolol and HCTZ held initially, however BP was stable and metoprolol was continued Hand paresthesias--likely musculoskeletal or secondary to arthritis -Tylenol prn pain -No neurological deficits, just tingling sensation and pain that is relieved with Tylenol. Suspect likely from fall and trying to catch herself with her hands/pulling herself up. Do not see need for MRI now. Head CT negative. Face/head trauma, nasal fractures--no need for intervention for nasal fractures -Pt will have delvis/sutures removed in 5-7 days from when they were put in, told pt to return to ED for removal on 11/26 -Tylenol prn pain Productive cough, fevers -Rapid flu and PCR negative -Head CT did show opacification of sphenoid sinuses -No more fevers, no WBC. Suspect is viral -Told to f/u with PCP if symptoms are not getting better after several days for possible abx HTN--stable -Continue metoprolol succinate 100 mg PO qd -HCTZ held during stay, can resume on discharge ELIU--resolved. Possibly secondary to viral illness. pt admits that she has little oral fluid intake -Baseline creatinine around 1.0 -Creatinine 1.3 upon arrival -After IV, creatinine back to baseline Hypothyroidism -Continue Synthroid 50 mcg PO qd DVT prophylaxis -Hold chemical prophylaxis due to head trauma -GELA stapleton and SCDs Code Status -Level I, FULL RESUSCITATION STATUS Dispo -PT/OT evaluated, no need for PT services and safe to return home at discharge -Pt medically stable for discharge. Will f/u with PCP in 1-2 weeks. Sutures/ delvis removed on 11/26 Total Time Spent: Greater than 30 minutes This includes examination of the patient, discharge planning, medication reconciliation, and communication with other providers. (Kym Hernandez ., PA-C) I agree with PA assessment and plan and have seen and examined pt myself Pt resting comfortably in bed States occasional paresthesias in bilateral hands and tenderness too VSS LAbs reviewed PT consulted, tolerated well OK for discharge at this time Syncope likely due to orthostasis (Clayton Dalton D.O.) Discharge Instructions Please refer to the electronic Patient Visit Report (Discharge Instructions) for additional information. (Kym Hernandez ., PA-C) Additional Copies To Erna Tavarez M.D.
== END 2016-11-22 14:31 | disposition home or self-care (01) ==
LOC: ENRESERVDT → ENRESERVTM → C.EDB 19:35 → C.2T 23:56
PROVIDERS: ADMIT Internal Medicine; ATTEND Hospitalist
DX: R55 Syncope and collapse (principal); F41.9 Anxiety disorder, unspecified; I10 Essential (primary) hypertension; S01.01XA Laceration without foreign body of scalp, initial encounter; S00.83XA Contusion of other part of head, initial encounter; S01.81XA Laceration without foreign body of other part of head, initial encounter; W10.9XXA Fall (on) (from) unspecified stairs and steps, initial encounter; S01.21XA Laceration without foreign body of nose, initial encounter; R50.9 Fever, unspecified; I50.9 Heart failure, unspecified; E03.9 Hypothyroidism, unspecified; N17.9 Acute kidney failure, unspecified; R05 Cough; Z82.49 Family history of ischemic heart disease and other diseases of the circulatory system; Z83.3 Family history of diabetes mellitus

== ENCOUNTER 2016-11-26 10:28 | Emergency (ER) | payer OTHER ==
[~2016-11-26] VITALS: Ht 157.5 cm; Wt 73.8 kg
[~2016-11-26 10:28] MED LIST changes: -HYDR12.55 PO; +HYDR25TA5 PO; -METO100T7 PO; -PANT40TA PO; +PRT/40 PO; -SUCR1TAB PO; +TPRSR/100 PO; -TYLOTC500 PO
[2016-11-26 10:32] VITALS: BP 163/90; PULSE 88; TEMP 36.3; O2SAT 94; Ht 157.5 cm; Wt 73.8 kg
--- NOTE | 2016-11-26 10:45 | EMERGENCY ROOM VISIT NOTE ---
ED Visit Note First contact with patient: 10:37 CHIEF COMPLAINT: Suture removal HISTORY OF PRESENT ILLNESS: This 76-year-old female patient returns to the ED today for removal of sutures and delvis that were placed 6 days ago. There has been no swelling, redness, or drainage from the wound. The patient feels like the laceration is healing well. REVIEW OF SYSTEMS: A 6 system review of systems was completed with positives and pertinent negatives listed in the HPI. PMH: Unchanged from previous visit. ALLERGIES: No known drug allergies PHYSICAL EXAM: Vital Signs: Reviewed Nurse's notes, vital signs stable. GENERAL : This is a 76-year-old female, in no acute distress. SKIN: There is a sutured wound on the face with no signs of infection. There is a stapled wound to the scalp. There is no erythema, swelling, or tenderness. EMERGENCY DEPARTMENT COURSE: A total of 6 sutures and 5 delvis were removed without any difficulty and there was no separation of the wound edges. The patient was discharged home in good condition. DIAGNOSIS: Healing laceration and suture removal DISCHARGE INSTRUCTIONS AND TREATMENT: Wash any remaining crusts off of the wound today and resume your normal activities. Problem List Medical Problems: (1) Anxiety Status: Chronic (2) Arthritis Status: Chronic (3) Benign hypertension Status: Chronic (4) Bilateral tubal ligation Status: Resolved (5) ESOPHAGEAL STRICTURE Status: Chronic (6) Hysterectomy Status: Resolved (7) Phlebitis Status: Chronic Current/Historical Medications Scheduled Hydrochlorothiazide (Hydrochlorothiazide), 12.5 MG PO DAILY Levothyroxine Sodium (Levothyroxine Sodium), 50 MCG PO DAILY Metoprolol Succinate (Metoprolol Succinate ER), 100 MG PO DAILY Multiple Vitamins W/ Minerals (One Daily 50 Plus), 1 TAB PO DAILY Pantoprazole (Pantoprazole Sodium), 40 MG PO BID Allergies Coded Allergies: No Known Allergies (Verified , NKA, 11/20/16) Vital Signs Date Time Temp Pulse Resp B/P Pulse Ox O2 Delivery O2 Flow Rate FiO2 11/26/16 10:32 36.3 88 18 163/90 94 Room Air Departure Information Impression Primary Impression: Encounter for removal of sutures Additional Impression: Encounter for removal of delvis Dispostion Home / Self-Care Condition GOOD Referrals Eran Tavarez M.D. (PCP) Patient Instructions [facility] Additional Instructions Wash any remaining crusts off of the wound today and resume your normal activities. Problem Qualifiers
== END 2016-11-26 11:04 | disposition home or self-care (01) ==
LOC: C.EDB 10:29 → C.EDD 11:04
DX: Z48.02 Encounter for removal of sutures (principal); I10 Essential (primary) hypertension; Z98.51 Tubal ligation status; Z90.710 Acquired absence of both cervix and uterus

== ENCOUNTER → 2017-05-18 | Outpatient (CLI) | payer OTHER ==
[2017-05-18 12:07] LABS: BASO % 0.5 %; BASO ABS # 0.02 K/uL (0-0.2); COMPLETE YES; EOS % 3.6 %; HEMATOCRIT 40.6 % (37-47); LYMPH ABS # 1.06 K/uL (1.2-3.4); MEAN CELL VOLUME 93.1 fL (80-100); MEAN CORPUSCULAR HEMOGLOBIN 31.7 pg (25-34); MONO % 15.6 %; NEUT % 51.3 %; PLATELET COUNT 223 K/uL (130-400); RED BLOOD COUNT 4.36 M/uL (4.2-5.4); WHITE BLOOD COUNT 3.65 K/uL (4.8-10.8)
[2017-05-18 12:27] LABS: ALT/SGPT 26 U/L (12-78); AST/SGOT 27 U/L (15-37); BLOOD UREA NITROGEN 17 mg/dl (7-18); BUN/CREATININE RATIO 16.6 (10-20); CALCIUM 9.4 mg/dl (8.5-10.1); CARBON DIOXIDE 27 mmol/L (21-32); CHLORIDE 104 mmol/L (98-107); CHOLESTEROL 267 mg/dl (0-200); GLUCOSE 91 mg/dl (70-99); POTASSIUM 3.8 mmol/L (3.5-5.1); SODIUM 138 mmol/L (136-145)
[2017-05-18 12:40] LABS: ALKALINE PHOSPHATASE 71 U/L (45-117); CHOLESTEROL/HDL RATIO 4.2; HDL CHOLESTEROL 63 mg/dl; LDL CHOLESTEROL CALCULATED 185 mg/dl; TRIGLYCERIDES 97 mg/dl (0-150); VERY LOW DENSITY LIPOPROT CALC 19 mg/dl
[2017-05-18 12:54] LABS: ESTIMATED AVERAGE GLUCOSE 114 mg/dl; HA1C FLAG Normal (Normal)
== END | disposition home or self-care (01) ==
LOC: C.LABBFT 08:43
PROVIDERS: ATTEND Internal Medicine
DX: E78.5 Hyperlipidemia, unspecified (principal); I10 Essential (primary) hypertension; E03.9 Hypothyroidism, unspecified; R73.01 Impaired fasting glucose

== ENCOUNTER → 2017-11-28 | Outpatient (CLI) | payer OTHER ==
[~2017-11-28] MED LIST changes: +PANT40TA2 PO; -PRT/40 PO
[2017-11-28 12:57] LABS: ALBUMIN 3.7 gm/dl (3.4-5.0); ALT/SGPT 27 U/L (12-78); AST/SGOT 19 U/L (15-37); BLOOD UREA NITROGEN 23 mg/dl (7-18); CALCIUM 9.2 mg/dl (8.5-10.1); CARBON DIOXIDE 27 mmol/L (21-32); CHOLESTEROL 256 mg/dl (0-200); CREATININE 1.05 mg/dl (0.60-1.20); GLUCOSE 95 mg/dl (70-99); SODIUM 138 mmol/L (136-145)
[2017-11-28 13:08] LABS: ALKALINE PHOSPHATASE 82 U/L (45-117); LDL CHOLESTEROL CALCULATED 175 mg/dl; TOTAL PROTEIN 7.8 gm/dl (6.4-8.2)
== END | disposition home or self-care (01) ==
LOC: C.LABBFT 08:30
PROVIDERS: ATTEND Internal Medicine
DX: E78.5 Hyperlipidemia, unspecified (principal); E03.9 Hypothyroidism, unspecified